=== PATIENT | male | born 1960 | race Hispanic/Latino ===

== ENCOUNTER 2019-08-31 14:57 | Outpatient (CLI) | payer OTHER ==
--- NOTE | 2019-08-31 15:25 | ULT ---
RENAL ULTRASOUND HISTORY: History of chronic kidney disease and hypertension COMPARISON: None FINDINGS: Right Kidney: Size: 9.4 x 5.2 x 5.6 cm. The right renal cortical thickness was 1.7 cm. Abnormality: Normal cortical echotexture. No hydronephrosis. Left Kidney: Size: The left kidney measures 10.4 x 5.1 x 5.4 cm. The left renal cortical thickness was 1.8 cm. Abnormality: Normal cortical echotexture. No hydronephrosis Urinary bladder: The prevoid bladder volume was 268.01 cc. The post void bladder volume was 21.22 cc. No definite intraluminal mass is identified. IMPRESSION: 1. No focal renal lesion or hydronephrosis demonstrated.
== END 2019-08-31 14:58 | disposition home or self-care (01) ==
LOC: BICULT 14:57
PROVIDERS: ATTEND Family Medicine
DX: I12.9 Hypertensive chronic kidney disease with stage 1 through stage 4 chronic kidney disease, or unspecified chronic kidney disease (principal); N18.3 Chronic kidney disease, stage 3 (moderate)
CPT/HCPCS: 76770

== ENCOUNTER 2021-06-04 08:18 | Outpatient (CLI) | payer BC | END 2021-06-04 08:19 | disposition home or self-care (01) | LOC: TBSIIMAG 08:18 | PROVIDERS: ATTEND Physician Assistant | DX: H02.401 Unspecified ptosis of right eyelid (principal); H53.8 Other visual disturbances | CPT/HCPCS: 70544; 70553 ==

== ENCOUNTER 2021-08-31 13:33 | Outpatient (CLI) | payer BC | END 2021-08-31 13:34 | disposition home or self-care (01) | LOC: BICCT 13:33 → CT 13:34 | PROVIDERS: ATTEND Psychiatry & Neurology Neurology | DX: M81.0 Age-related osteoporosis without current pathological fracture (principal); G70.00 Myasthenia gravis without (acute) exacerbation; D49.89 Neoplasm of unspecified behavior of other specified sites; M85.89 Other specified disorders of bone density and structure, multiple sites | CPT/HCPCS: 71250; 77080 ==